=== PATIENT | male | born 2000 | race Native Hawaiian/Other Pacific Islander ===

== ENCOUNTER 2019-03-04 10:09 | Outpatient (CLI) | payer OTHER | END 2019-03-04 19:30 | disposition home or self-care (01) | LOC: RAD 10:09 | DX: M10.079 Idiopathic gout, unspecified ankle and foot (principal); M79.672 Pain in left foot ==

== ENCOUNTER 2020-11-09 16:10 | Outpatient (CLI) | payer OTHER | END 2020-11-09 19:16 | disposition home or self-care (01) | LOC: RAD 16:10 | PROVIDERS: ATTEND Family Medicine | DX: U07.1 COVID-19 (principal) ==

== ENCOUNTER 2021-04-06 12:42 | Outpatient (CLI) | payer OTHER ==
[~2021-04-06] VITALS: Ht 170.2 cm; Wt 136.1 kg
== END 2021-04-06 19:12 | disposition home or self-care (01) ==
LOC: INF 12:42
PROVIDERS: ATTEND Family Medicine
DX: U07.1 COVID-19 (principal); Z23 Encounter for immunization
CPT/HCPCS: 96365; M0244

== ENCOUNTER 2022-02-23 12:29 | Outpatient (CLI) | payer BC | END 2022-02-23 19:05 | disposition home or self-care (01) | LOC: RAD 12:29 | PROVIDERS: ATTEND Nurse Practitioner Primary Care | DX: M10.9 Gout, unspecified (principal); M79.672 Pain in left foot | CPT/HCPCS: 36415; 84550 ==